=== PATIENT | female | born 1990 | race Caucasian/White ===

== ENCOUNTER 2017-02-15 14:11 | Emergency (ER) | payer SELFPAY ==
[~2017-02-15] VITALS: Ht 165.1 cm; Wt 60.0 kg
[~2017-02-15 14:11] MED LIST: CEPH-376 PO; GUAI200T3 PO; IRON1TAB60 PO; LEVO750T26 PO; OXYC5TAB3 PO
[2017-02-15] MEDS ORDERED: DIPH,PERTUSS(ACELL),TET VAC/PF 0.5 ML IM-VACC ONE ×2 (15:00)
[2017-02-15 16:34] VITALS: BP 138/93
== END 2017-02-15 16:36 | disposition home or self-care (01) ==
LOC: ED 14:59
DX: S80.02XA Contusion of left knee, initial encounter (principal); S80.01XA Contusion of right knee, initial encounter; L03.115 Cellulitis of right lower limb; Z23 Encounter for immunization; W01.0XXA Fall on same level from slipping, tripping and stumbling without subsequent striking against object, initial encounter; Y99.8 Other external cause status; Y93.89 Activity, other specified; Y92.828 Other wilderness area as the place of occurrence of the external cause
CPT/HCPCS: 29505; 90471; 90715

== ENCOUNTER 2017-08-13 09:26 | Emergency (ER) | payer MEDICAID ==
[~2017-08-13] VITALS: Ht 162.6 cm; Wt 60.0 kg
[2017-08-13 09:30] VITALS: BP 128/88
[2017-08-13] MEDS ORDERED: DEXAMETHASONE 4 MG/ML, 5ML ONE (09:52)
[2017-08-13] MEDS ORDERED: DEXAMETHASONE 4 MG TABLET ONE (09:57)
[2017-08-13] MEDS ORDERED: DEXAMETHASONE 4 MG TABLET PO ONE (10:00)
== END 2017-08-13 10:16 | disposition home or self-care (01) ==
LOC: ED 09:52
DX: J03.00 Acute streptococcal tonsillitis, unspecified (principal); F17.210 Nicotine dependence, cigarettes, uncomplicated
CPT/HCPCS: 99283

== ENCOUNTER 2017-09-16 17:52 | Emergency (ER) | payer MEDICAID ==
[~2017-09-16] VITALS: Ht 162.6 cm; Wt 62.6 kg
[2017-09-16] MEDS ORDERED: SODIUM CHLORIDE FLUSH 10ML SYR IVF ONE (18:30)
[2017-09-16 18:44] LABS: BASOPHILS # (AUTO) 0.03 x10^3/uL (0-0.1); BASOPHILS % (AUTO) 0 % (0-1); EOSINOPHILS # (AUTO) 0.06 x10^3/uL (0-0.4); EOSINOPHILS % (AUTO) 1 % (1-7); LYMPHOCYTES # (AUTO) 2.25 x10^3/uL (1-3.4); LYMPHOCYTES % (AUTO) 23 % (22-44); MD NO; MEAN CORPUSCULAR HEMOGLOBIN 32.6 pg (27.0-34.8); MEAN CORPUSCULAR HGB CONC 33.7 g/dL (32.4-35.8); MEAN CORPUSCULAR VOLUME 96.6 fL (80-100); MONOCYTES # (AUTO) 0.66 x10^3/uL (0.2-0.8); MONOCYTES % (AUTO) 7 % (2-9); NEUTROPHILS % (AUTO) 69 % (42-75); PLATELET COUNT 278 x10^3/uL (130-400); RED BLOOD COUNT 4.19 x10^6/uL (3.82-5.3); RED CELL DISTRIBUTION WIDTH 14.2 % (9.6-15.2)
[2017-09-16 18:51] LABS: ALBUMIN 3.5 g/dL (3.4-5.0); ANION GAP 6 mmol/L (5-15); CALCIUM 8.6 mg/dL (8.5-10.1); CHLORIDE 103 mmol/L (98-107)
[2017-09-16 18:57] LABS: ALANINE AMINOTRANSFERASE 32 U/L (12-78); ALKALINE PHOSPHATASE 77 U/L (45-117); BILIRUBIN,TOTAL 0.2 mg/dL (0.2-1.0); CREATININE 0.88 mg/dL (0.55-1.02)
[2017-09-16 19:07] LABS: MICROSCOPIC AUTO
[2017-09-16] MEDS ORDERED: HYDROmorphone 2 MG/ML, 1ML ONE ×2 (19:25→20:33)
[2017-09-16] MEDS ORDERED: ONDANSETRON 2MG/ML, 2ML ONE (19:25)
[2017-09-16 19:27] LABS: CULTURE INDICATED? YES
[2017-09-16] MEDS ORDERED: ONDANSETRON 2MG/ML, 2ML IVPush ONE (19:30)
[2017-09-16] MEDS: HYDROmorphone 1 MG/ML, 1ML IVPush PRN ×2 (19:35→20:35)
[2017-09-16] MEDS ORDERED: OMNIPAQUE 350 MG/ML, 100ML BOTTLE ONE (21:51)
[2017-09-16 22:53] VITALS: BP 120/78
== END 2017-09-16 22:56 | disposition home or self-care (01) ==
LOC: ED 22:01
DX: N30.00 Acute cystitis without hematuria (principal); R10.31 Right lower quadrant pain; R11.0 Nausea
CPT/HCPCS: 36415; 74177; 76830; 80053; 81001; 83690; 84703; 85025; 87086; 96374; 96375; 96376; 99285; J1170; J2405; Q9967

== ENCOUNTER 2018-06-27 09:26 | Emergency (ER) | payer MEDICAID ==
[~2018-06-27] VITALS: Ht 162.6 cm; Wt 60.7 kg
[2018-06-27] MEDS ORDERED: ONDANSETRON 2MG/ML, 2ML IVPush ONE (10:00)
[2018-06-27] MEDS ORDERED: SODIUM CHLORIDE FLUSH 10ML SYR IVF ONE (10:00)
[2018-06-27] MEDS ORDERED: MORPHINE SULFATE 4 MG/ML, 1ML IVPush PRN (10:00)
[2018-06-27 10:09] LABS: BASOPHILS # (AUTO) 0.05 x10^3/uL (0-0.1); BASOPHILS % (AUTO) 1 % (0-1); EOSINOPHILS # (AUTO) 0.06 x10^3/uL (0-0.4); EOSINOPHILS % (AUTO) 1 % (1-7); LYMPHOCYTES # (AUTO) 2.36 x10^3/uL (1-3.4); LYMPHOCYTES % (AUTO) 33 % (22-44); MD NO; MEAN CORPUSCULAR HEMOGLOBIN 33.9 pg (27.0-34.8); MEAN CORPUSCULAR HGB CONC 33.7 g/dL (32.4-35.8); MEAN CORPUSCULAR VOLUME 100.7 fL (80-100); MONOCYTES # (AUTO) 0.59 x10^3/uL (0.2-0.8); MONOCYTES % (AUTO) 8 % (2-9); NEUTROPHILS # (AUTO) 4.07 x10^3/uL (1.8-6.8); NEUTROPHILS % (AUTO) 57 % (42-75); PLATELET COUNT 384 x10^3/uL (130-400); RED BLOOD COUNT 3.98 x10^6/uL (3.82-5.3); RED CELL DISTRIBUTION WIDTH 14.2 % (9.6-15.2)
[2018-06-27 10:16] LABS: ALBUMIN 3.6 g/dL (3.4-5.0); ANION GAP 9 mmol/L (5-15); CALCIUM 8.3 mg/dL (8.5-10.1); CHLORIDE 110 mmol/L (98-107); CREATININE 0.62 mg/dL (0.55-1.02)
[2018-06-27] MEDS ORDERED: MORPHINE SULFATE 4 MG/ML, 1ML ONE (10:42)
[2018-06-27] MEDS ORDERED: ONDANSETRON 2MG/ML, 2ML ONE (10:42)
[2018-06-27 11:00] LABS: HCG UR SG 1.015 (1.003-1.030); MICROSCOPIC NOT IND
[2018-06-27 11:02] LABS: CULTURE INDICATED? NO
[2018-06-27 12:50] VITALS: BP 106/61
== END 2018-06-27 12:52 | disposition home or self-care (01) ==
LOC: ED 11:40
DX: N83.201 Unspecified ovarian cyst, right side (principal); N83.202 Unspecified ovarian cyst, left side
CPT/HCPCS: 36415; 76830; 80048; 81003; 81025; 82040; 85025; 96374; 96375; 99285; J2405

== ENCOUNTER 2019-07-21 04:04 | Inpatient (IN) | payer MEDICAID, OTHER ==
[~2019-07-21] VITALS: Ht 162.6 cm; Wt 70.7 kg
[~2019-07-21 04:04] MED LIST changes: -GUAI200T3 PO; +GUAI200T37 PO
[2019-07-21] MEDS ORDERED: ONDANSETRON 2MG/ML, 2ML ONE (04:16)
[2019-07-21] MEDS ORDERED: KETOROLAC 30 MG/1 ML ONE (04:16)
[2019-07-21] MEDS ORDERED: MORPHINE SULFATE 4 MG/ML, 1ML ONE ×2 (04:17→07:01)
[2019-07-21] MEDS ORDERED: ACETAMINOPHEN 500 MG TABLET ONE (04:17)
[2019-07-21] MEDS: MORPHINE SULFATE 4 MG/ML, 1ML IVPush PRN ×2 (04:22→07:18)
[2019-07-21] MEDS ORDERED: ONDANSETRON 2MG/ML, 2ML IVPush ONE (04:30)
[2019-07-21] MEDS ORDERED: SODIUM CHLORIDE FLUSH 10ML SYR IVF ONE (04:30)
[2019-07-21] MEDS ORDERED: KETOROLAC 30 MG/1 ML IVPush ONE (04:30)
[2019-07-21] MEDS ORDERED: ACETAMINOPHEN 500 MG TABLET PO ONE ×2 (04:30→05:00)
[2019-07-21] MEDS ORDERED: SODIUM CHLORIDE 0.9% 1,000ML IVBOLUS ONE ×2 (04:30→12:30)
[2019-07-21 04:37] LABS: MEAN CORPUSCULAR HEMOGLOBIN 33.2 pg (27.0-34.8); MEAN CORPUSCULAR HGB CONC 33.2 g/dL (32.4-35.8); MEAN CORPUSCULAR VOLUME 99.9 fL (80-100); MEAN PLATELET VOLUME 8.1 fL (7.4-10.4); PLATELET COUNT 359 x10^3/uL (130-400); RED BLOOD COUNT 4.06 x10^6/uL (3.82-5.3); RED CELL DISTRIBUTION WIDTH 12.9 % (9.6-15.2)
[2019-07-21 04:48] LABS: ALANINE AMINOTRANSFERASE 36 U/L (12-78); ALBUMIN 2.8 g/dL (3.4-5.0); ANION GAP 9 mmol/L (5-15); CALCIUM 8.5 mg/dL (8.5-10.1); CHLORIDE 101 mmol/L (98-107); CREATININE 0.65 mg/dL (0.55-1.02)
[2019-07-21 04:53] LABS: ALKALINE PHOSPHATASE 110 U/L (45-117); BILIRUBIN,TOTAL 0.3 mg/dL (0.2-1.0); TOTAL PROTEIN 8.2 g/dL (6.4-8.2)
[2019-07-21 05:18] LABS: MD YES
[2019-07-21 05:20] LABS: RAPID INFLUENZA A Negative (Negative); RAPID INFLUENZA B Negative (Negative)
[2019-07-21 05:21] LABS: <PLATELET ESTIMATE> ADEQUATE; <PLT MORPHOLOGY> NORMAL PLT MORPH; <RBC MORPHOLOGY> NORMAL; BAND#(MANUAL) 0.23 x10^3/uL; BANDS%(MANUAL) 1 % (0-7); BASOS#(MANUAL) 0.23 x10^3/uL (0-0.1); BASOS% (MANUAL) 1 % (0-1); LYMPH#(MANUAL) 1.58 x10^3/uL (1-3.4); LYMPHS% (MANUAL) 7 % (22-44); MONOS#(MANUAL) 1.13 x10^3/uL (0.3-2.7); MONOS% (MANUAL) 5 % (2-9); SEG#(MANUAL) 19.35 x10^3/uL (1.8-6.8); SEGS% (MANUAL) 86 % (42-75)
[2019-07-21 06:00] LABS: MICROSCOPIC AUTO
[2019-07-21 06:02] LABS: CULTURE INDICATED? YES
[2019-07-21] MEDS ORDERED: SODIUM CHLORIDE 0.9% 1,000 ML IV ONE (06:37)
[2019-07-21] MEDS ORDERED: CEFTRIAXONE PMX 2GM/50ML 50 ML IV SCH (07:00)
--- NOTE | 2019-07-21 07:00 | NUR ---
BEDSIDE REPORT FROM ROSARIO RN, PT RESTING IN [facility] WITH IVF INFUSING, NO NEEDS AT THIS TIME
[2019-07-21] MEDS ORDERED: CEFTRIAXONE PMX 2GM/50ML 50 ML ONE (07:01)
[2019-07-21] MEDS ORDERED: NS + 20MEQ KCL 1,000 ML IV SCH (07:17)
--- NOTE | 2019-07-21 07:26 | NUR ---
PT MEDICATED FOR PAIN AND IV ABX STARTED AFTER BC DRAWN
--- NOTE | 2019-07-21 07:27 | NUR ---
REPORT TO ANYA MARX
[2019-07-21] MEDS ORDERED: ONDANSETRON 2MG/ML, 2ML IVPush PRN (07:30)
[2019-07-21] MEDS ORDERED: ACETAMINOPHEN 325 MG TABLET PO PRN (07:30)
[2019-07-21] MEDS ORDERED: ONDANSETRON ODT 4 MG PO PRN (07:30)
[2019-07-21] MEDS: ENOXAPARIN 40 MG/0.4 ML SQ SCH (09:00)
[2019-07-21 09:14] VITALS: BP 102/64
[2019-07-21] MEDS: CEFTRIAXONE PMX 1GM/50ML 50 ML IV SCH (09:53)
[2019-07-21] MEDS: NICOTINE 14MG/24 HR PATCH.TD24 TD SCH (09:53)
[2019-07-21 10:00] VITALS: BP 120/64
[2019-07-21] MEDS: HYDROcodone/APAP 5/325 TABLET PO PRN ×3 (10:16→17:16)
[2019-07-21 13:29] VITALS: BP 127/85
[2019-07-21 14:35] VITALS: BP 113/73
[2019-07-21] MEDS: IBUPROFEN 600 MG TABLET PO PRN (14:48)
[2019-07-21 20:15] VITALS: BP 117/68
[2019-07-22 01:32] VITALS: BP 117/74
[2019-07-22] MEDS: HYDROcodone/APAP 5/325 TABLET PO PRN ×7 (01:41→20:10)
[2019-07-22 05:36] LABS: MEAN CORPUSCULAR HEMOGLOBIN 33.4 pg (27.0-34.8); MEAN CORPUSCULAR HGB CONC 33.3 g/dL (32.4-35.8); MEAN CORPUSCULAR VOLUME 100.4 fL (80-100); PLATELET COUNT 303 x10^3/uL (130-400); RED BLOOD COUNT 3.52 x10^6/uL (3.82-5.3); RED CELL DISTRIBUTION WIDTH 13.4 % (9.6-15.2)
[2019-07-22 05:43] LABS: ANION GAP 6 mmol/L (5-15); CALCIUM 8.3 mg/dL (8.5-10.1); CHLORIDE 107 mmol/L (98-107)
[2019-07-22 05:45] LABS: CREATININE 0.45 mg/dL (0.55-1.02)
[2019-07-22 05:57] LABS: BASOPHILS # (AUTO) 0.02 x10^3/uL (0-0.1); BASOPHILS % (AUTO) 0 % (0-1); EOSINOPHILS # (AUTO) 0.04 x10^3/uL (0-0.4); EOSINOPHILS % (AUTO) 0 % (1-7); LYMPHOCYTES # (AUTO) 1.47 x10^3/uL (1-3.4); LYMPHOCYTES % (AUTO) 10 % (22-44); MD SCAN; MONOCYTES % (AUTO) 10 % (2-9); NEUTROPHILS # (AUTO) 12.38 x10^3/uL (1.8-6.8); NEUTROPHILS % (AUTO) 80 % (42-75)
[2019-07-22 07:42] VITALS: BP 129/88
[2019-07-22] MEDS: ENOXAPARIN 40 MG/0.4 ML SQ SCH (09:00)
[2019-07-22] MEDS: NICOTINE 14MG/24 HR PATCH.TD24 TD SCH (09:29)
[2019-07-22] MEDS: CEFTRIAXONE PMX 1GM/50ML 50 ML IV SCH (09:29)
[2019-07-22] MEDS: SODIUM CHLORIDE 0.9% 1,000 ML IV SCH ×2 (09:29→18:31)
[2019-07-22 13:02] VITALS: BP 123/85
[2019-07-22] MEDS: IBUPROFEN 600 MG TABLET PO PRN (17:52)
[2019-07-22 18:49] VITALS: BP 116/75
[2019-07-23 02:09] VITALS: BP 110/70
[2019-07-23] MEDS: HYDROcodone/APAP 5/325 TABLET PO PRN ×5 (02:22→21:20)
[2019-07-23] MEDS: IBUPROFEN 600 MG TABLET PO PRN ×3 (04:43→18:00)
[2019-07-23] MEDS: SODIUM CHLORIDE 0.9% 1,000 ML IV SCH ×2 (04:43→16:48)
[2019-07-23 05:22] LABS: BASOPHILS # (AUTO) 0.04 x10^3/uL (0-0.1); BASOPHILS % (AUTO) 0 % (0-1); EOSINOPHILS # (AUTO) 0.04 x10^3/uL (0-0.4); EOSINOPHILS % (AUTO) 1 % (1-7); LYMPHOCYTES # (AUTO) 1.51 x10^3/uL (1-3.4); LYMPHOCYTES % (AUTO) 16 % (22-44); MD NO; MEAN CORPUSCULAR HEMOGLOBIN 33.2 pg (27.0-34.8); MEAN CORPUSCULAR HGB CONC 33.2 g/dL (32.4-35.8); MEAN CORPUSCULAR VOLUME 100.2 fL (80-100); MEAN PLATELET VOLUME 8.4 fL (7.4-10.4); MONOCYTES # (AUTO) 1.07 x10^3/uL (0.2-0.8); MONOCYTES % (AUTO) 12 % (2-9); NEUTROPHILS # (AUTO) 6.58 x10^3/uL (1.8-6.8); NEUTROPHILS % (AUTO) 71 % (42-75); PLATELET COUNT 339 x10^3/uL (130-400); RED CELL DISTRIBUTION WIDTH 13.4 % (9.6-15.2)
[2019-07-23 05:28] LABS: CHLORIDE 108 mmol/L (98-107)
[2019-07-23 05:35] LABS: ALANINE AMINOTRANSFERASE 46 U/L (12-78); ALBUMIN 2.1 g/dL (3.4-5.0); ALKALINE PHOSPHATASE 146 U/L (45-117); ANION GAP 6 mmol/L (5-15); BILIRUBIN,TOTAL 0.2 mg/dL (0.2-1.0); CALCIUM 7.9 mg/dL (8.5-10.1); CREATININE 0.48 mg/dL (0.55-1.02); TOTAL PROTEIN 6.7 g/dL (6.4-8.2)
[2019-07-23 07:24] VITALS: BP 115/80
[2019-07-23] MEDS: NICOTINE 14MG/24 HR PATCH.TD24 TD SCH (08:50)
[2019-07-23] MEDS: ENOXAPARIN 40 MG/0.4 ML SQ SCH (08:50)
[2019-07-23] MEDS: CEFTRIAXONE PMX 1GM/50ML 50 ML IV SCH (10:53)
[2019-07-23 13:09] VITALS: BP 129/84
[2019-07-23 18:55] VITALS: BP 117/80
[2019-07-24 00:39] VITALS: BP 127/83
[2019-07-24] MEDS: SODIUM CHLORIDE 0.9% 1,000 ML IV SCH ×2 (02:09→12:44)
[2019-07-24] MEDS: IBUPROFEN 600 MG TABLET PO PRN ×2 (02:09→08:38)
[2019-07-24 07:27] VITALS: BP 130/77
[2019-07-24] MEDS: ENOXAPARIN 40 MG/0.4 ML SQ SCH (08:34)
[2019-07-24] MEDS: NICOTINE 14MG/24 HR PATCH.TD24 TD SCH (08:35)
[2019-07-24] MEDS: HYDROcodone/APAP 5/325 TABLET PO PRN (08:43)
[2019-07-24] MEDS ORDERED: IBUP-1222 PO (10:40)
[2019-07-24] MEDS ORDERED: ONDA4TAB13 PO (10:40)
[2019-07-24] MEDS ORDERED: CEFD300C37 PO (10:40)
[2019-07-24] MEDS ORDERED: NICO-486 TD (10:40)
[2019-07-24] MEDS: CEFTRIAXONE PMX 1GM/50ML 50 ML IV SCH (11:05)
[2019-07-24 15:47] VITALS: BP 126/83
[2019-07-24] MEDS: FLU VAC QS 19-20(4YR UP)CEL/PF 0.5 ML IM-VACC ONE ×2 (16:16→16:20)
== END 2019-07-24 17:38 | disposition home or self-care (01) | DRG 872 ==
LOC: ED 05:16 → EDIP 06:31 → 3N 07:50
PROVIDERS: ADMIT Family Medicine; ATTEND Internal Medicine
DX: A41.9 Sepsis, unspecified organism (principal); N12 Tubulo-interstitial nephritis, not specified as acute or chronic; F17.200 Nicotine dependence, unspecified, uncomplicated; M41.9 Scoliosis, unspecified; Z59.0 Homelessness; Z87.01 Personal history of pneumonia (recurrent)
CPT/HCPCS: 36415; 71045; 76770; 80048; 80053; 81001; 83605; 83735; 84100; 84145; 84703; 85025; 87040; 87077; 87086; 87186; 87400; 90674; 96365; 96375; 96376; G0378; J0696; J1885; J2405; J3480; J2270; J7030

== ENCOUNTER 2019-11-06 12:28 | Emergency (ER) | payer MEDICAID ==
[~2019-11-06] VITALS: Ht 162.6 cm; Wt 58.0 kg
[~2019-11-06 12:28] MED LIST changes: +CEFD300C37 PO; +IBUP-1222 PO; +NICO-486 TD; +ONDA4TAB13 PO
[2019-11-06 12:34] VITALS: BP 116/64
--- NOTE | 2019-11-06 12:37 | NUR ---
[employer]: PT REFUSES EKG
--- NOTE | 2019-11-06 12:44 | NUR ---
CONTINUOUS PULSE OX PLACED ON PT. PT. HR 133; REFUSING EKG. ONLY C/O SORE THROAT WITH PAINFUL SWALLOWING.
[2019-11-06] MEDS ORDERED: DEXAMETHASONE 4 MG/ML, 5ML ONE (13:09)
[2019-11-06] MEDS ORDERED: DEXAMETHASONE 4 MG/ML, 1ML PO ONE (13:30)
== END 2019-11-06 13:50 | disposition home or self-care (01) ==
LOC: ED 13:37
DX: J02.0 Streptococcal pharyngitis (principal); F17.200 Nicotine dependence, unspecified, uncomplicated
CPT/HCPCS: 99283; J1100